=== PATIENT | female | born 1965 | race Caucasian/White ===

== ENCOUNTER 2022-03-23 11:07 | Outpatient (CLI) | payer BC, SELFPAY | END 2022-03-23 11:08 | disposition home or self-care (01) | LOC: LKVREF 11:07 | PROVIDERS: PCP Physician Assistant Medical; Visit Provider Physician Assistant | DX: Z01.419 Encounter for gynecological examination (general) (routine) without abnormal findings (principal); E03.9 Hypothyroidism, unspecified; Z11.3 Encounter for screening for infections with a predominantly sexual mode of transmission; Z12.4 Encounter for screening for malignant neoplasm of cervix; Z13.6 Encounter for screening for cardiovascular disorders; Z13.1 Encounter for screening for diabetes mellitus | CPT/HCPCS: 87624; 88175 ==

== ENCOUNTER 2022-04-01 10:58 | Outpatient (CLI) | payer BC, SELFPAY ==
[2022-04-01 14:34] LABS: Cholesterol* 221 mg/dL (90-199); Glucose* 81 mg/dL (60-115); Triglycerides* 52 mg/dL (40-149)
[2022-04-01 14:35] LABS: HDL Cholesterol* 55 mg/dL (>=50); LDL Cholesterol Calculated 156 mg/dL (<100)
== END 2022-04-01 10:59 | disposition home or self-care (01) ==
PROVIDERS: PCP Physician Assistant Medical; Visit Provider Physician Assistant
DX: Z13.6 Encounter for screening for cardiovascular disorders (principal); Z13.1 Encounter for screening for diabetes mellitus
CPT/HCPCS: 80061; 82947

== ENCOUNTER 2022-08-06 13:00 | Outpatient (RCR) | payer BC, SELFPAY | END 2022-12-03 23:59 | disposition home or self-care (01) | PROVIDERS: PCP Physician Assistant Medical; Visit Provider Physician Assistant | DX: R15.9 Full incontinence of feces (principal); Z51.89 Encounter for other specified aftercare | CPT/HCPCS: 97110; 97112; 97140; 97161; 97535 ==

== ENCOUNTER 2022-09-10 14:12 | Outpatient (CLI) | payer BC, SELFPAY ==
--- NOTE | 2022-09-10 14:30 | CRLHL7_ITS ---
For Patients: As a result of the Century Cures Act, medical imaging exams and procedure reports are released immediately into your electronic medical record. You may view this report before your referring provider. If you have questions, please contact your health care provider. HISTORY: Right leg pain TECHNIQUE: Axial T1, coronal T1 and coronal PD fat-sat large hillq-eu-dbjr images were obtained of the entire pelvis. Axial, sagittal and coronal proton density fat-saturated small sbftq-be-gphh images were obtained of the right hip. COMPARISON: 08/18/2021 radiographs FINDINGS: Right hip: No significant joint effusion. Zjvf-fn-tpqynfyf chondral thinning. Acetabular labrum is intact. No avascular necrosis. - Left hip: On the large tdxfk-vk-ljuz images of the entire pelvis, [id number]-[id number] left hip chondral thinning. No significant left hip effusion. Technique is not optimized for evaluation of internal derangement of the left hip. - Osseous structures: There is no acute pelvic or proximal femoral fracture. - Musculotendinous structures and bursae: Gluteal tendons and muscles are intact. Hamstring origins are intact.The distal iliopsoas tendons are intact. No evidence of trochanteric or iliopsoas bursitis. Muscle volume is within normal limits. - Other findings: Pubic symphysis and sacroiliac joints are intact. - Intrapelvic soft tissues: No significant abnormality. IMPRESSION: Jrfx-bj-gjtazyuc bilateral hip chondral thinning. Otherwise unremarkable exam. Dictated by Tate Ruiz MD @ 09/11/2022 4:14:55 PM (Electronically Signed)
--- NOTE | 2022-09-10 15:30 | CRLHL7_ITS ---
For Patients: As a result of the Century Cures Act, medical imaging exams and procedure reports are released immediately into your electronic medical record. You may view this report before your referring provider. If you have questions, please contact your health care provider. INDICATION: Low back pain. Right leg pain. COMPARISON: 03/21/2010. TECHNIQUE: Sagittal T1, T2, and STIR sequences. Axial T1 and T2 weighted sequences. FINDINGS: Normal vertebral body alignment. No fractures. No vertebral body loss of height. No spondylolisthesis. No ligamentous injury. No suspicious osseous lesions. Normal conus terminates at L1. Lumbar spondylosis with multilevel mild disc degeneration. Mild marrow edema of the articular processes of the right L4-5 facet joint which may represent stress reaction or inflammation from facet arthritis. L1-2: No spinal canal narrowing. L2-3: Progressive mild disc degeneration and posterior disc bulging. No narrowing of spinal canal. No neural foraminal narrowing. L3-4: Progressive mild disc degeneration. Diffuse disc bulge eccentric to the left. Annular fissure along the left far lateral zone. No narrowing of spinal canal. Mild to moderate narrowing of left neural foramen. No narrowing of the right neural foramen. L4-5: Mild disc degeneration posterior disc bulge. No narrowing of spinal canal. No neural foraminal narrowing. L5-S1: No narrowing of spinal canal. No impingement of the traversing S1 nerve roots. No neural foraminal narrowing. Mild facet arthropathy. Normal visualized SI joints. Normal paraspinal soft tissues. Small renal cysts bilaterally. IMPRESSION: 1. Normal alignment. No fractures 2. Interval progression of lumbar spondylosis 3. Mild marrow edema of the articular processes of the right L4-5 facet joints which may represent stress reaction or inflammation. 4. At L3-4, mild progressive disc degeneration. Diffuse disc bulge. Annular fissure along the left far lateral zone. No narrowing of the spinal canal. Mild to moderate narrowing of the left neuroforamen. 5. No spinal canal or neural foraminal narrowing at the remaining levels Dictated by Don Gonzales MD @ 09/11/2022 3:36:44 PM (Electronically Signed)
== END 2022-09-10 14:13 | disposition home or self-care (01) ==
LOC: MRI 14:12
PROVIDERS: PCP Physician Assistant Medical; Visit Provider Physician Assistant Medical
DX: M54.50 Low back pain, unspecified (principal); M51.36 Other intervertebral disc degeneration, lumbar region; M51.26 Other intervertebral disc displacement, lumbar region; M79.604 Pain in right leg; R29.898 Other symptoms and signs involving the musculoskeletal system; M79.651 Pain in right thigh
CPT/HCPCS: 72148; 73721

== ENCOUNTER 2023-02-08 16:15 | Outpatient (RCR) | payer BC, SELFPAY | END 2023-03-30 10:34 | disposition home or self-care (01) | PROVIDERS: PCP Physician Assistant Medical; Visit Provider Family Medicine | DX: M79.651 Pain in right thigh (principal); M54.50 Low back pain, unspecified; Z51.89 Encounter for other specified aftercare | CPT/HCPCS: 97110; 97161; 97535 ==

== ENCOUNTER 2025-01-02 08:35 | Outpatient (CLI) | payer OTHER, SELFPAY | END 2025-01-02 08:36 | disposition home or self-care (01) | LOC: NFLDREF 01-07 04:13 | PROVIDERS: PCP Physician Assistant Medical; Referring Provider Physician Assistant Medical; Visit Provider Physician Assistant Medical | DX: E03.9 Hypothyroidism, unspecified (principal); Z78.0 Asymptomatic menopausal state; Z13.6 Encounter for screening for cardiovascular disorders; Z13.9 Encounter for screening, unspecified | CPT/HCPCS: 80053; 80061; 82306 ==

== ENCOUNTER 2025-03-07 08:33 | Outpatient (CLI) | payer OTHER, SELFPAY | END 2025-03-07 08:34 | disposition home or self-care (01) | LOC: NFLDREF 03-10 16:06 | PROVIDERS: PCP Physician Assistant Medical; Referring Provider Physician Assistant Medical; Visit Provider Physician Assistant Medical | DX: N30.01 Acute cystitis with hematuria (principal) | CPT/HCPCS: 87086 ==